=== PATIENT | male | born 1980 | race Caucasian/White ===

== ENCOUNTER 2019-12-15 01:58 | Inpatient (IN) | payer MEDICAID, OTHER ==
[2019-12-15] VITALS (9 sets, daily range): BP systolic 115–152; BP diastolic 73–93
[~2019-12-15] VITALS: Ht 188 cm; Wt 86.9 kg
[2019-12-15] MEDS ORDERED: SODIUM CHLORIDE 0.9% 2,000 ML IV ONE (02:30)
[2019-12-15] MEDS ORDERED: InsuLIN REG 1unit/0.01ml Soln (100units/ml) IV ONE (02:30)
[2019-12-15 03:14] LABS: Mean Corpuscular Volume 108.5 fL (80.0-100.0)
[2019-12-15 03:15] LABS: Hematocrit 49.1 % (41.0-53.0); Hemoglobin 14.3 g/dL (13.5-17.5); Mean Corpuscular Hemoglobin 31.6 pg (28.0-32.0); Mean Corpuscular Hgb Conc. 29.1 g/dL (32.0-36.0); Platelet Count (auto) 328 10^3/uL (140-450); Red Blood Cells 4.53 10^6/uL (4.5-5.90); Red Cell Distribution Width 14.5 % (11.8-14.3)
[2019-12-15 03:25] LABS: Basophils % (manual) 0 (0.0-2.0); Blast Cells 0; Eosinophils % (manual) 0 (0-7); Myelocytes % 0; Promyelocytes % 0; Reactive Lymphocytes 0
[2019-12-15 03:31] LABS: Albumin 3.4 g/dL (3.4-5.0); Amylase 65 U/L (25-115); Anion Gap 34 (5-15); Blood Urea Nitrogen 39 mg/dL (7-18); Calcium 8.5 mg/dL (8.5-10.1); Chloride 94 mmol/L (98-107); Lipase 50 U/L (73-393); Magnesium 2.9 mg/dL (1.6-2.6); Sodium 130 mmol/L (136-145)
[2019-12-15 03:35] LABS: Lactic Acid w/Reflex 8.9 mmol/L (0.4-2.0)
[2019-12-15 03:40] LABS: Alanine Aminotransferase 41 U/L (16-61); Alkaline Phosphatase 130 U/L (45-117); Aspartate Aminotransferase 36 U/L (15-37); BUN/Creatinine Ratio 21.9; Bilirubin, Total 0.3 mg/dL (0.2-1.0); GFR African American 55 mL/min; GFR Non-African American 45 mL/min; Total Protein 7.2 g/dL (6.4-8.2)
[2019-12-15 03:44] LABS: Carbon Dioxide 2 mmol/L (21-32); Glucose 877 mg/dL (74-106); Potassium 6.2 mmol/L (3.5-5.1)
[2019-12-15] MEDS ORDERED: SODIUM CHLORIDE 0.9% 1,000 ML IV ONE ×2 (04:15→10:45)
[2019-12-15 04:20] LABS: Alcohol, Urine < 3.0 mg/dL (0-10); Amphetamine Screen, Urine NEGATIVE (NEGATIVE); Barbiturate Scree,Urine NEGATIVE (NEGATIVE); Benzodiazephine Screen, Urine NEGATIVE (NEGATIVE); Cannabinoid Screen, Urine NEGATIVE (NEGATIVE); Cocaine Screen, Urine NEGATIVE (NEGATIVE); Opiate Scree,Urine NEGATIVE (NEGATIVE); Phencyclidine Screen, Urine NEGATIVE (NEGATIVE); Urine Amorphous Crystal FEW /hpf (None Seen); Urine Bacteria FEW /hpf (None Seen); Urine Blood 2+ /uL (Negative); Urine Mucus FEW (None Seen); Urine Specific Gravity 1.017 (1.001-1.035); Urine WBC 1 /hpf (0 - 3)
[2019-12-15] MEDS: ACCU-CHEK COMFORT CURVE STRIP VI SCH ×13 (04:30→22:45)
[2019-12-15] MEDS ORDERED: SODIUM BICARBONATE 8.4 % INJ 50ML VIAL IV ONE ×4 (04:30→05:00)
[2019-12-15] MEDS ORDERED: INSULIN LANTUS (GLARGINE) 1 /0.01ml (100units/ml) SC ONE ×2 (04:30→17:45)
[2019-12-15] MEDS ORDERED: DEXTROSE (50%) 50ML SYRG IV PRN ×2 (04:30→23:00)
[2019-12-15] MEDS ORDERED: SODIUM BICARBONATE 8.4% INJ 50ML SYRINGE ONE (04:45)
[2019-12-15 04:55] LABS: Band Neutrophils % (manual) 8; Lymphocytes % (manual) 17 (10.0-50.0); Metamyelocytes % 1; Monocytes % (manual) 5 (0-12)
[2019-12-15] MEDS ORDERED: SODIUM BICARBONATE 50ML VIAL 100 ML in SOD CHL 0.45% 1,000 ML IV ONE (05:00)
[2019-12-15] MEDS ORDERED: LORazepam 2MG/ML-1ML VIAL IV ONE (05:00)
[2019-12-15] MEDS: SODIUM CHLORIDE 0.9% 1,000 ML IV SCH ×2 (05:12→06:17)
[2019-12-15] MEDS ORDERED: InsuLIN REG 1unit/0.01ml Soln (100units/ml) ONE (05:21)
[2019-12-15] MEDS: InsuLIN R (HUMAN) 100 UNITS in SODIUM CHL 0.9% 99 ML IV SCH ×10 (05:31→19:48)
[2019-12-15 05:57] LABS: Hemoglobin 13.2 g/dL (13.5-17.5)
[2019-12-15 06:00] LABS: Mean Corpuscular Hemoglobin 31.5 pg (28.0-32.0); Mean Corpuscular Hgb Conc. 30.8 g/dL (32.0-36.0); Mean Corpuscular Volume 102.5 fL (80.0-100.0); Platelet Count (auto) 291 10^3/uL (140-450); Red Blood Cells 4.19 10^6/uL (4.5-5.90); Red Cell Distribution Width 14.1 % (11.8-14.3); White Blood Cell 20.4 10^3/uL (4.4-10.8)
[2019-12-15 06:04] LABS: Basophils % (manual) 0 (0.0-2.0); Blast Cells 0; Metamyelocytes % 0; Myelocytes % 0; Promyelocytes % 0; Reactive Lymphocytes 0
[2019-12-15 06:11] LABS: BUN/Creatinine Ratio 24.4; Calcium 7.6 mg/dL (8.5-10.1); Magnesium 2.5 mg/dL (1.6-2.6); Potassium 5.2 mmol/L (3.5-5.1)
[2019-12-15] MEDS ORDERED: ONDANSETRON HCL 4 MG/2 ML VIAL IV PRN (07:00)
[2019-12-15] MEDS ORDERED: CALCIUM GLUC 4.65meq/50ml D5AE 50 ML IV ONE (07:00)
[2019-12-15] MEDS ORDERED: SODIUM BICARBONATE 50ML VIAL 100 ML in SOD CHL 0.45% 1,000 ML IV SCH (07:00)
[2019-12-15] MEDS ORDERED: MORPHINE SULF INJ 2 MG/ML SYRINGE 1ML IV PRN (07:00)
[2019-12-15] MEDS ORDERED: NITROGLYCERIN 0.4 MG SL TAB SL PRN (07:00)
[2019-12-15] MEDS ORDERED: MIDAZOLAM DRIP 50 mg/50mL 50 ML IV SCH ×2 (07:13→08:00)
[2019-12-15] MEDS ORDERED: SUCCINYLCHOLINE CHLORIDE 20 MG/ML 10ML VIAL IV ONE (07:15)
[2019-12-15] MEDS ORDERED: ETOMIDATE (2MG/ML) 20ML VIAL IV ONE (07:15)
[2019-12-15] MEDS ORDERED: MIDAZOLAM DRIP 50 mg/50mL 50 ML IV ONE (07:20)
[2019-12-15 07:28] LABS: Band Neutrophils % (manual) 9; Eosinophils % (manual) 1 (0-7); Lymphocytes % (manual) 15 (10.0-50.0); Monocytes % (manual) 5 (0-12)
[2019-12-15] MEDS ORDERED: fentaNYL Drip 2500mCg/250mlNS 250 ML IV SCH (08:00)
[2019-12-15] MEDS ORDERED: SODIUM CHLORIDE 0.9% 1,000 ML IV SCH ×4 (08:19→12:15)
[2019-12-15 08:30] LABS: Lactic Acid w/Reflex 3.2 mmol/L (0.4-2.0)
[2019-12-15] MEDS: NOREPINEPHRINE 8 MG/250ML KIT 250 ML IV SCH (09:11)
[2019-12-15] MEDS: cefTRIAXone 1GM/50ML D5W 50 ML IV SCH (09:15)
[2019-12-15] MEDS: PANTOPRAZOLE 40 MG/10 ML VIAL INJ IV SCH (10:03)
[2019-12-15] MEDS: SODIUM BICARBONATE 50ML VIAL 100 ML in SOD CHL 0.45% 1,000 ML IV SCH ×2 (10:45→17:27)
[2019-12-15] MEDS: MIDAZOLAM DRIP 50 mg/50mL 50 ML IV SCH ×3 (11:04→22:00)
[2019-12-15] MEDS ORDERED: VANCOMYCIN PER PHARMACY 0 MG IV SCH (12:15)
[2019-12-15] MEDS ORDERED: VANCOMYCIN 1GM/250ML 250 ML IV ONE (12:30)
[2019-12-15] MEDS ORDERED: InsuLIN R (HUMAN) 100 UNITS in SODIUM CHL 0.9% 99 ML IV SCH ×2 (14:01→16:46)
[2019-12-15] MEDS: PROPOFOL 100 ML IV SCH ×2 (14:38→23:22)
[2019-12-15 16:45] LABS: BUN/Creatinine Ratio 29.3; Calcium 7.1 mg/dL (8.5-10.1)
[2019-12-15] MEDS: FREE WATER GT SCH ×2 (18:08→22:08)
[2019-12-15] MEDS: INSULIN LANTUS (GLARGINE) 1 /0.01ml (100units/ml) SC SCH (22:04)
[2019-12-15] MEDS: METOCLOPRAMIDE HCL 5MG/ml INJ 2ml VIAL IV SCH (22:12)
[2019-12-15 22:22] LABS: BUN/Creatinine Ratio 29.8; Calcium 7.1 mg/dL (8.5-10.1); Potassium 3.7 mmol/L (3.5-5.1)
[2019-12-16 00:10] VITALS: BP 140/84
[2019-12-16] MEDS: ACCU-CHEK COMFORT CURVE STRIP VI SCH ×6 (00:12→20:33)
[2019-12-16] MEDS: MIDAZOLAM DRIP 50 mg/50mL 50 ML IV SCH ×2 (01:47→05:35)
[2019-12-16] MEDS ORDERED: SODIUM BICARBONATE 8.4 % INJ 50ML VIAL IV ONE (02:07)
[2019-12-16] MEDS: SODIUM BICARBONATE 50ML VIAL 100 ML in SOD CHL 0.45% 1,000 ML IV SCH (02:26)
[2019-12-16] MEDS: FREE WATER GT SCH ×3 (02:28→10:00)
[2019-12-16 02:35] VITALS: BP 121/82
[2019-12-16] MEDS: InsuLIN REG 1unit/0.01ml Soln (100units/ml) SC SCH ×6 (04:00→20:34)
[2019-12-16 04:10] VITALS: BP 117/75
[2019-12-16 06:10] VITALS: BP 131/87
[2019-12-16] MEDS: METOCLOPRAMIDE HCL 5MG/ml INJ 2ml VIAL IV SCH ×2 (06:17→14:00)
[2019-12-16 06:41] LABS: Basophils # (auto) 0 10 ^3/uL (0-0.2); Basophils % (auto) 0.4 % (0.0-2.0); Eosinophils # (auto) 0 10 ^3/uL (0-0.8); Hematocrit 35.1 % (41.0-53.0); Hemoglobin 12.1 g/dL (13.5-17.5); Lymphocytes % (auto) 9.3 % (10.0-50.0); Mean Corpuscular Hemoglobin 31.9 pg (28.0-32.0); Mean Corpuscular Hgb Conc. 34.5 g/dL (32.0-36.0); Mean Corpuscular Volume 92.2 fL (80.0-100.0); Monocytes # (auto) 0.8 10 ^3/uL (0-1.3); Monocytes % (auto) 7.5 % (0.0-12.0); Neutrophils % (auto) 82.8 % (37.0-80.0); Platelet Count (auto) 214 10^3/uL (140-450); Red Blood Cells 3.81 10^6/uL (4.5-5.90); Red Cell Distribution Width 13.5 % (11.8-14.3); White Blood Cell 10.9 10^3/uL (4.4-10.8)
[2019-12-16 07:03] LABS: Albumin 2.4 g/dL (3.4-5.0); Calcium 6.8 mg/dL (8.5-10.1); Potassium 3.4 mmol/L (3.5-5.1)
[2019-12-16 07:08] LABS: BUN/Creatinine Ratio 27.7; Bilirubin, Total 0.2 mg/dL (0.2-1.0)
[2019-12-16] MEDS ORDERED: LORazepam 2MG/ML-1ML VIAL IV PRN (08:00)
[2019-12-16] MEDS ORDERED: POTASSIUM CHLORIDE 20 MEQ, LIDOCAINE 1% (LOCAL ANESTH.) 2 ML in SODIUM CHL 0.9% 100 ML IV ONE (08:15)
[2019-12-16 08:35] VITALS: BP 153/91
[2019-12-16] MEDS: NOREPINEPHRINE 8 MG/250ML KIT 250 ML IV SCH (08:45)
[2019-12-16] MEDS: cefTRIAXone 1GM/50ML D5W 50 ML IV SCH (09:00)
[2019-12-16] MEDS: INSULIN LANTUS (GLARGINE) 1 /0.01ml (100units/ml) SC SCH (10:00)
[2019-12-16] MEDS: PANTOPRAZOLE 40 MG/10 ML VIAL INJ IV SCH (10:00)
[2019-12-16] MEDS ORDERED: INSULIN LANTUS (GLARGINE) 1 /0.01ml (100units/ml) SC SCH (10:00)
[2019-12-16] MEDS: ENOXAPARIN SOD 40 MG/0.4 ML SYRINGE SC SCH (10:00)
[2019-12-16 10:10] VITALS: BP 137/84
[2019-12-16] MEDS ORDERED: DexMEDEtomidine 400 MCG in D5W 5% 96 ML IV SCH (10:27)
--- NOTE | 2019-12-16 10:39 | NUR ---
Respiratory note: PT PLACED ON CPAP TRIAL PER ORDERS. PT IS STILL ASLEEP BUT IS TOLERATING CPAP TRIAL WELL.
--- NOTE | 2019-12-16 12:00 | NUR ---
Respiratory note: WEANING PARAMETERS OBTAINED. VC 1450, NIF -30.0, RSBI 23, LEAK 150.
--- NOTE | 2019-12-16 12:20 | NUR ---
Respiratory note: PT WAS EXTUBATED PER ORDERS. NO POST CPAP ABG OBTAINED PER ORDERS. PT IS VERY COMBATIVE. PT WAS PLACED ON COOL AEROSOL 35% 8L. HR 103, RR22, POX 100%. WILL CONTINUE TO MONITOR PT.
[2019-12-16] MEDS ORDERED: HALOPERIDOL LACTATE 5 MG/ML INJ VIAL IM PRN (12:45)
[2019-12-16] MEDS: VANCOMYCIN 1GM/250ML 250 ML IV SCH (15:00)
[2019-12-16 17:43] LABS: Magnesium 1.8 mg/dL (1.6-2.6); Phosphorus 2.1 mg/dL (2.5-4.90)
--- NOTE | 2019-12-16 22:30 | NUR ---
Telemetry admit from ER KANWAL MARLOW admitted to Telemetry unit after SBAR received. Patient oriented to JAN PHILIPPE, RN primary RN, MST unit, room 274, bed B, and unit policies regarding patient care and visiting hours. Patient now on continuous telemetry monitoring, tele box #[id number] and telemetry reading on arrival to unit is sinus rhythm. Patient weighed by bed scale and encouraged to call if they need something. All questions and concerns addressed, patient verbalized understanding. Note: Patient able to turn independently, bed in lowest locked position, side rails up x2, and call light within reach. Sitter at bedside.
[2019-12-17] MEDS: VANCOMYCIN 1GM/250ML 250 ML IV SCH ×3 (01:29→21:20)
[2019-12-17] MEDS: InsuLIN REG 1unit/0.01ml Soln (100units/ml) SC SCH ×6 (04:00→20:01)
[2019-12-17] MEDS: ACCU-CHEK COMFORT CURVE STRIP VI SCH ×6 (04:59→19:56)
[2019-12-17 05:00] VITALS: BP 142/68
[2019-12-17 07:10] LABS: Basophils # (auto) 0.1 10 ^3/uL (0-0.2); Basophils % (auto) 0.7 % (0.0-2.0); Eosinophils # (auto) 0 10 ^3/uL (0-0.8); Hematocrit 34.3 % (41.0-53.0); Hemoglobin 11.9 g/dL (13.5-17.5); Lymphocytes # (auto) 1.7 10 ^3/uL (0.4-5.4); Lymphocytes % (auto) 22.8 % (10.0-50.0); Mean Corpuscular Hemoglobin 31.7 pg (28.0-32.0); Mean Corpuscular Hgb Conc. 34.7 g/dL (32.0-36.0); Mean Corpuscular Volume 91.3 fL (80.0-100.0); Monocytes # (auto) 0.5 10 ^3/uL (0-1.3); Monocytes % (auto) 6.9 % (0.0-12.0); Neutrophils # (auto) 5.2 10 ^3/uL (1.6-8.6); Neutrophils % (auto) 69.6 % (37.0-80.0); Platelet Count (auto) 192 10^3/uL (140-450); Red Blood Cells 3.76 10^6/uL (4.5-5.90); Red Cell Distribution Width 14.1 % (11.8-14.3); White Blood Cell 7.5 10^3/uL (4.4-10.8)
--- NOTE | 2019-12-17 07:15 | NUR ---
OPENING NOTE: RECEIVED REPORT FROM NOC RN, PATIENT SLEEPING IN BED. RESTING, NO S/S OF DISTRESS. POC NO CONSULTS AT THIS TIME. WILL CONTINUE TO MONITOR. SITTER STATED, CANNOT FIND TELE BOX, WIRES/LEADS STILL ATTACHED TO PATIENT, PATIENT PULLS AT LEAD WIRES THROUGHOUT NOC SHIFT.
[2019-12-17 07:37] LABS: Albumin 2.3 g/dL (3.4-5.0); Calcium 7.5 mg/dL (8.5-10.1); Potassium 3.2 mmol/L (3.5-5.1)
[2019-12-17 07:43] LABS: BUN/Creatinine Ratio 22.7; Bilirubin, Total 0.4 mg/dL (0.2-1.0)
[2019-12-17 08:00] VITALS: BP 138/92
[2019-12-17] MEDS: cefTRIAXone 1GM/50ML D5W 50 ML IV SCH (08:45)
--- NOTE | 2019-12-17 10:00 | NUR ---
PATIENT PULLED RIGHT HAND IV LINE. COMMUNICATED WITH TO RUN MEDICATIONS AND FLUIDS THROUGH CENTRAL/MIDLINE.
[2019-12-17] MEDS: PANTOPRAZOLE 40 MG/10 ML VIAL INJ IV SCH (10:10)
[2019-12-17] MEDS: ENOXAPARIN SOD 40 MG/0.4 ML SYRINGE SC SCH (10:10)
[2019-12-17] MEDS: INSULIN LANTUS (GLARGINE) 1 /0.01ml (100units/ml) SC SCH (10:10)
[2019-12-17 12:00] VITALS: BP 153/90
--- NOTE | 2019-12-17 12:23 | NUR ---
SWALLOW EVALUATION. PATIENT HAS NATURAL TEETH UPPER AND LOWER. PATIENT ABLE TO TOLERATE REGULAR TEXTURE WITH THIN LIQUIDS WITH NO OVERT SIGNS OR SYMPTOMS OF ASPIRATION. NURSING NOTIFIED.
--- NOTE | 2019-12-17 13:30 | NUR ---
NEW PASSWORD T[employer]/ [employer]. SET UP BETWEEN PATIENT AND MOTHER. WILL UPDATE FATHER AND GIRLFRIEND PATIENT REQUESTS. MOTHER, MINDA MARLOW WOULD LIKE TO SPEAK TO THE HOSPITAL LIST TOMORROW, 12/18/2019 FOR AN UPDATE ON CARE, LAB FINDINGS [id number].
[2019-12-17 16:00] VITALS: BP 145/80
--- NOTE | 2019-12-17 20:00 | NUR ---
Opening Shift Note Assumed care of patient, awake and alert. No S/S of distress/SOB or pain. Instructed on POC and to call for assist PRN, will continue to monitor for changes Q1hr and PRN.
[2019-12-17 22:27] VITALS: BP 110/66
[2019-12-18] MEDS: ACCU-CHEK COMFORT CURVE STRIP VI SCH ×6 (00:11→19:40)
[2019-12-18] MEDS: InsuLIN REG 1unit/0.01ml Soln (100units/ml) SC SCH ×6 (00:14→19:39)
[2019-12-18 05:06] VITALS: BP 136/73
[2019-12-18 05:46] LABS: Basophils # (auto) 0 10 ^3/uL (0-0.2); Basophils % (auto) 0.4 % (0.0-2.0); Eosinophils # (auto) 0 10 ^3/uL (0-0.8); Eosinophils % (auto) 0.6 % (0.0-7.0); Hematocrit 32.6 % (41.0-53.0); Hemoglobin 11.4 g/dL (13.5-17.5); Lymphocytes # (auto) 1.6 10 ^3/uL (0.4-5.4); Lymphocytes % (auto) 35.7 % (10.0-50.0); Mean Corpuscular Hemoglobin 32.1 pg (28.0-32.0); Mean Corpuscular Volume 91.7 fL (80.0-100.0); Monocytes # (auto) 0.4 10 ^3/uL (0-1.3); Monocytes % (auto) 7.9 % (0.0-12.0); Neutrophils # (auto) 2.5 10 ^3/uL (1.6-8.6); Neutrophils % (auto) 55.4 % (37.0-80.0); Nucleated Red Blood Cells % 0.1 %; Platelet Count (auto) 157 10^3/uL (140-450); Red Blood Cells 3.55 10^6/uL (4.5-5.90); Red Cell Distribution Width 13.9 % (11.8-14.3); White Blood Cell 4.4 10^3/uL (4.4-10.8)
[2019-12-18 06:01] LABS: Albumin 2.1 g/dL (3.4-5.0); BUN/Creatinine Ratio 18.4; Calcium 7.4 mg/dL (8.5-10.1)
[2019-12-18 06:03] LABS: Bilirubin, Total 0.5 mg/dL (0.2-1.0); Total Protein 4.9 g/dL (6.4-8.2)
[2019-12-18] MEDS: VANCOMYCIN 1GM/250ML 250 ML IV SCH ×3 (06:37→22:14)
--- NOTE | 2019-12-18 07:30 | NUR ---
Opening Shift Note RECEIVED REPORT FROM NOC RN. Assumed care of patient, awake and alert. No S/S of distress/SOB or pain. BED IN LOWEST, LOCKED POSITION WITH SIDERAILS UP x2 AND CALL LIGHT WITHIN REACH AND SITTER AT BEDSIDE. Instructed on POC and to call for assist PRN, will continue to monitor for changes Q1hr and PRN.
[2019-12-18] MEDS: ACETAMINOPHEN 325 MG TAB PO PRN ×4 (08:16→22:21)
[2019-12-18] MEDS: INSULIN LANTUS (GLARGINE) 1 /0.01ml (100units/ml) SC SCH (08:29)
[2019-12-18] MEDS: cefTRIAXone 1GM/50ML D5W 50 ML IV SCH (09:06)
[2019-12-18] MEDS ORDERED: POTASSIUM CHL 20 Meq TABLET PO ONE (10:15)
--- NOTE | 2019-12-18 10:25 | NUR ---
DR. Preston SANABRIA AT BEDSIDE.
[2019-12-18] MEDS: PANTOPRAZOLE 40 MG/10 ML VIAL INJ IV SCH (10:29)
[2019-12-18] MEDS: ENOXAPARIN SOD 40 MG/0.4 ML SYRINGE SC SCH (10:29)
--- NOTE | 2019-12-18 10:36 | NUR ---
PER DR. Preston SANABRIA, CONTINUE WITH VANCOMYCIN FOR ANTIBIOTIC.
--- NOTE | 2019-12-18 12:11 | NUR ---
Nutrition Assessment Notes please see attached link for complete assessment [employer] needs BW 86 [id number] kcals (25-30 kcal/kgBW), Est Protein needs: 86-111 gms/day (1.0-1.3 gm/kgBW r/t severe hypoalb). Will continue to monitor and reassess prn. Addendum: 12/18/19 at [address] Amended: Links added.
--- NOTE | 2019-12-18 12:30 | NUR ---
Grace catheter dc'd Order to discontinue grace catheter. Grace dc'd with clean technique following deflation of balloon. Patient tolerated well with no complaints of pain. Continue care.
[2019-12-18 17:00] VITALS: BP 146/97
--- NOTE | 2019-12-18 19:00 | NUR ---
OPENING NOTE Received report from day shift RN. Patient is A&O X's 4 with no s/s of distress and reports no pain. Bed is in lowest/locked position with side rails up X's 2 and call light is within reach of patient. Educated patient POC and to use call light when in need of assistance. Patient verbalized understanding. Will continue care.
[2019-12-18 22:00] VITALS: BP 142/101
[2019-12-18 22:29] VITALS: BP 132/82
[2019-12-19] MEDS: InsuLIN REG 1unit/0.01ml Soln (100units/ml) SC SCH ×5 (00:06→16:14)
[2019-12-19] MEDS: ACCU-CHEK COMFORT CURVE STRIP VI SCH ×5 (00:13→16:14)
[2019-12-19 05:00] VITALS: BP 147/100
[2019-12-19] MEDS: VANCOMYCIN 1GM/250ML 250 ML IV SCH (06:26)
[2019-12-19] MEDS: ACETAMINOPHEN 325 MG TAB PO PRN (07:04)
--- NOTE | 2019-12-19 07:35 | NUR ---
Opening Shift Note Assumed care of patient, awake and alert. No S/S of distress/SOB or pain. Updated on POC and instructed to call for assistance PRN, patient verbalized understanding. Bed locked in lowest position, side rails up x2, call light within reach. Safety precautions in place. Will continue to monitor for changes Q1hr and PRN.
[2019-12-19] MEDS: PANTOPRAZOLE 40 MG/10 ML VIAL INJ IV SCH (08:40)
[2019-12-19] MEDS: cefTRIAXone 1GM/50ML D5W 50 ML IV SCH (08:40)
[2019-12-19] MEDS: ENOXAPARIN SOD 40 MG/0.4 ML SYRINGE SC SCH (08:41)
[2019-12-19] MEDS: INSULIN LANTUS (GLARGINE) 1 /0.01ml (100units/ml) SC SCH (08:49)
[2019-12-19 09:00] VITALS: BP 153/102
[2019-12-19] MEDS ORDERED: DEXTROSE (50%) 50ML SYRG IV PRN (09:30)
[2019-12-19] MEDS ORDERED: LISINOPRIL 10 MG TAB PO SCH (10:00)
[2019-12-19] MEDS ORDERED: PANTOPRAZOLE 40 MG TAB PO SCH (10:00)
--- NOTE | 2019-12-19 10:05 | NUR ---
COVID SWAB TAKEN TO LAB.
[2019-12-19] MEDS ORDERED: INSULIN 70/30 1unit/0.01ml Susp (100units/ml) SC SCH ×2 (12:00→17:30)
[2019-12-19 13:00] VITALS: BP 157/101
[2019-12-19] MEDS ORDERED: DOX100T PO (13:18)
[2019-12-19] MEDS ORDERED: PANT40T PO (13:18)
[2019-12-19 16:27] VITALS: BP 142/97
--- NOTE | 2019-12-19 19:33 | NUR ---
DISCHARGE HOME Discharge instructions given as ordered. Encourage to follow up with PMD as instructed. All questions and concerns addressed. Patient verbalized understanding. Medication reconciliation form completed and copy given to patient. IV removed with catheter intact, pressure dressing applied. Telemetry unit returned to ICU. [facility] with all personal belongings, accompanied by staff . No distress noted at time of departure.
[2019-12-19] MEDS ORDERED: DOXYCYCLINE 100 MG TAB/CAP PO SCH (22:00)
[2019-12-20] MEDS ORDERED: INSULIN 70/30 1unit/0.01ml Susp (100units/ml) SC SCH (08:00)
== END 2019-12-19 19:33 | disposition home or self-care (01) | DRG 420 ==
LOC: EDBD 01:58 → ER 01:59 → TELE 02:00 → TELE-WESTW 12-16 22:28
PROVIDERS: ADMIT Nurse Practitioner; ATTEND Internal Medicine
PROC: 02HV33Z Insertion of Infusion Device into Superior Vena Cava, Percutaneous Approach (ICD-10-PCS; principal; 2019-12-15)
PROC: 5A1935Z Respiratory Ventilation, Less than 24 Consecutive Hours (ICD-10-PCS; 2019-12-15)
PROC: 0BH17EZ Insertion of Endotracheal Airway into Trachea, Via Natural or Artificial Opening (ICD-10-PCS; 2019-12-15)
DX: E10.10 Type 1 diabetes mellitus with ketoacidosis without coma (principal); J96.00 Acute respiratory failure, unspecified whether with hypoxia or hypercapnia; J15.211 Pneumonia due to Methicillin susceptible Staphylococcus aureus; N17.0 Acute kidney failure with tubular necrosis; R65.11 Systemic inflammatory response syndrome (SIRS) of non-infectious origin with acute organ dysfunction; G93.41 Metabolic encephalopathy; E86.0 Dehydration; E10.40 Type 1 diabetes mellitus with diabetic neuropathy, unspecified; E87.5 Hyperkalemia; E87.1 Hypo-osmolality and hyponatremia; I10 Essential (primary) hypertension; Z79.4 Long term (current) use of insulin; Z20.828 Contact with and (suspected) exposure to other viral communicable diseases
CPT/HCPCS: 36415; 36600; 51702; 70450; 71045; 80048; 80053; 80202; 80307; 81001; 82010; 82150; 82565; 82805; 82962; 83036; 83605; 83690; 83735; 83930; 84100; 84484; 85007; 85025; 85027; 87040; 87070; 87077; 87086; 87186; 87205; 87880; 92610; 93005; 94002; 94003; 94640; 96361; 96365; 96372; 96375; 99291; 99292; C9113; G0378; J0330; J0610; J0696; J1815; J2001; J2250; J2704; J7060